=== PATIENT | male | born 1970 | race Caucasian/White ===

== ENCOUNTER 2018-10-26 11:35 | Inpatient (IN) ==
[2018-10-26] MEDS ORDERED: KETOROLAC 30 MG/1 ML VIAL IV STA (11:57)
[2018-10-26 12:28] LABS: Basophils % 0.3 % (0.0-0.8); Eosinophils # 0.1 10*3/uL (0.0-0.87); Eosinophils % 1.5 % (0.00-10.9); Hematocrit 26.9 VOL% (42.0-52.0); Hemoglobin 8.9 GM/DL (14.0-18.0); Immature Granulocytes % 0.5 %; Immature Granulocytes Absolute 0.03 #; Mean Corpuscular HGB Conc 33.1 GM/DL (32-36); Mean Corpuscular Hemoglobin 29 PG (27-34); Mean Corpuscular Volume 88.5 FL (87-102); Mean Platelet Volume 9.5 FL (9.6-12.0); Monocytes % 16.3 % (1.7-12.7); Neutrophils # 3.8 10*3/uL (1.4-7.4); Neutrophils % 64.4 % (38.7-73.9); Platelet Count 428 T/CUMM (130-400); Red Blood Count 3.04 MC/CUMM (3.8-5.5); Red Cell Distribution Width 13.2 % (9.3-17.3); White Blood Count 5.8 T/CUMM (4-12)
[2018-10-26 12:44] LABS: Lymphocytes 19 % (20-55); Platelet Estimate Adequate; Segmented Neutrophils 68 % (50-85); Total Cells Counted 100
[2018-10-26 12:45] LABS: Hypochromasia 1+; Ovalocytes Slight
[2018-10-26 12:58] LABS: Alanine Aminotransferase 15 U/L (16-61); Albumin 2.1 G/DL (3.4-5.0); Alkaline Phosphatase 141 U/L (45-117); Aspartate Amino Transferase 13 U/L (0-37); Bilirubin,Total < 0.39 MG/DL (0.2-1.0); Blood Urea Nitrogen 34 MG/DL (7-18); Calcium 9.4 MG/DL (8.5-10.1); Glucose 250 MG/DL (74-106); Osmolality,Calculated 275.8 MOS/KG (273-304); Potassium 3.6 MMOL/L (3.5-5.1); Sodium 130 MMOL/L (136-145); Total Protein 7.1 G/DL (6.4-8.3)
[2018-10-26] MEDS ORDERED: traZODone 50 MG TABLET PO PRN (14:08)
[2018-10-26] MEDS ORDERED: IPRATROPIUM 500 MCG/2.5 ML NEB RESP TX PRN (14:27)
[2018-10-26] MEDS ORDERED: ALBUTEROL 2.5 MG/3 ML NEB RESP TX PRN (14:27)
[2018-10-26] MEDS ORDERED: DEXTROSE 50% 25 GM/50 ML SYRINGE IV PRN (15:57)
[2018-10-26] MEDS ORDERED: GLUCAGON 1 MG VIAL IM PRN (15:57)
[2018-10-26] MEDS: SODIUM CHLORIDE 0.9% 1,000 ML IV SCH (17:25)
[2018-10-26] MEDS: INSULIN LISPRO 100 UNIT/ML SUBCUT SCH ×2 (18:11→20:04)
[2018-10-26] MEDS: INSULIN NPH 100 UNIT/ML SUBCUT SCH (20:05)
[2018-10-26] MEDS: GABAPENTIN 600 MG TABLET PEG SCH (20:41)
[2018-10-26] MEDS: buPROPion 100 MG TABLET PEG SCH (20:42)
[2018-10-26] MEDS: CARVEDILOL 12.5 MG TABLET PO SCH (20:42)
[2018-10-26] MEDS: SIMVASTATIN 40 MG TABLET PO SCH (20:42)
[2018-10-26] MEDS: RANOLAZINE 500 MG TABLET PO SCH (20:44)
[2018-10-26] MEDS ORDERED: GABAPENTIN 600 MG TABLET PO SCH (21:00)
[2018-10-26] MEDS ORDERED: buPROPion SR 100 MG TABLET PO SCH (21:00)
[2018-10-27] MEDS: SODIUM CHLORIDE 0.9% 1,000 ML IV SCH ×3 (01:31→22:39)
[2018-10-27] MEDS: ONDANSETRON 4 MG/2 ML VIAL IV PRN ×2 (07:51→12:25)
[2018-10-27] MEDS ORDERED: MYLANTA/LIDO VISC/DIPH 300 ML BOTTLE SWISH/SPIT PRN (08:45)
[2018-10-27] MEDS: INSULIN LISPRO 100 UNIT/ML SUBCUT SCH ×4 (10:28→21:00)
[2018-10-27] MEDS: INSULIN NPH 100 UNIT/ML SUBCUT SCH ×2 (10:30→21:00)
[2018-10-27] MEDS: RANOLAZINE 500 MG TABLET PO SCH ×2 (10:32→21:00)
[2018-10-27] MEDS: buPROPion 100 MG TABLET PEG SCH ×2 (10:32→21:00)
[2018-10-27] MEDS: busPIRone 15 MG TABLET PO SCH (10:32)
[2018-10-27] MEDS: CARVEDILOL 12.5 MG TABLET PO SCH ×2 (10:33→20:59)
[2018-10-27] MEDS: PANTOPRAZOLE 40 MG TABLET PO SCH (10:33)
[2018-10-27] MEDS: ASPIRIN EC 81 MG TABLET PO SCH (10:33)
[2018-10-27] MEDS: LISINOPRIL 2.5 MG TABLET PO SCH (10:34)
[2018-10-27 11:45] LABS: Basophils % 0.2 % (0.0-0.8); Eosinophils % 0.2 % (0.00-10.9); Hematocrit 24.7 VOL% (42.0-52.0); Hemoglobin 8.2 GM/DL (14.0-18.0); Immature Granulocytes % 0.5 %; Immature Granulocytes Absolute 0.02 #; Lymphocytes # 0.7 10*3/uL (1.4-4.0); Mean Corpuscular HGB Conc 33.2 GM/DL (32-36); Mean Corpuscular Hemoglobin 30 PG (27-34); Mean Corpuscular Volume 89.8 FL (87-102); Mean Platelet Volume 9.3 FL (9.6-12.0); Monocytes # 0.7 10*3/uL (0.11-0.8); Monocytes % 15.5 % (1.7-12.7); Neutrophils # 2.9 10*3/uL (1.4-7.4); Neutrophils % 67.6 % (38.7-73.9); Platelet Count 406 T/CUMM (130-400); Red Blood Count 2.75 MC/CUMM (3.8-5.5); Red Cell Distribution Width 13.2 % (9.3-17.3); White Blood Count 4.3 T/CUMM (4-12)
[2018-10-27 12:09] LABS: Alanine Aminotransferase 12 U/L (16-61); Albumin 1.9 G/DL (3.4-5.0); Alkaline Phosphatase 109 U/L (45-117); Aspartate Amino Transferase 10 U/L (0-37); Bilirubin,Total < 0.39 MG/DL (0.2-1.0); Blood Urea Nitrogen 21 MG/DL (7-18); Calcium 8.9 MG/DL (8.5-10.1); Glucose 201 MG/DL (74-106); Osmolality,Calculated 274.4 MOS/KG (273-304); Potassium 3.9 MMOL/L (3.5-5.1); Sodium 133 MMOL/L (136-145); Total Protein 6.6 G/DL (6.4-8.3)
[2018-10-27] MEDS: GABAPENTIN 600 MG TABLET PEG SCH (20:59)
[2018-10-27] MEDS: SIMVASTATIN 40 MG TABLET PO SCH (21:00)
[2018-10-28] MEDS: RANOLAZINE 500 MG TABLET PO SCH (08:42)
[2018-10-28] MEDS: busPIRone 15 MG TABLET PO SCH (08:42)
[2018-10-28] MEDS: LISINOPRIL 2.5 MG TABLET PO SCH (08:43)
[2018-10-28] MEDS: buPROPion 100 MG TABLET PEG SCH (08:43)
[2018-10-28] MEDS: INSULIN NPH 100 UNIT/ML SUBCUT SCH ×2 (08:43→09:05)
[2018-10-28] MEDS: PANTOPRAZOLE 40 MG TABLET PO SCH (08:43)
[2018-10-28] MEDS: ASPIRIN EC 81 MG TABLET PO SCH (08:44)
[2018-10-28] MEDS: CARVEDILOL 12.5 MG TABLET PO SCH (08:44)
[2018-10-28] MEDS: ONDANSETRON 4 MG/2 ML VIAL IV PRN (09:01)
[2018-10-28] MEDS: INSULIN LISPRO 100 UNIT/ML SUBCUT SCH ×3 (09:05→16:01)
[2018-10-28] MEDS: SODIUM CHLORIDE 0.9% 1,000 ML IV SCH (10:21)
[2018-10-28 17:43] VITALS: BP 117/75
== END 2018-10-28 17:39 | disposition home or self-care (01) | DRG 136 ==
LOC: N.ED 11:35 → N.EDINP 13:39 → N.4E 14:57
PROVIDERS: ADMIT Internal Medicine; ATTEND Internal Medicine